=== PATIENT | male | born 1940 | race Caucasian/White ===

== ENCOUNTER 2016-10-11 10:59 | Outpatient (CLI) | payer MEDICARE ==
[~2016-10-11] VITALS: Ht 177.8 cm; Wt 104.5 kg
--- NOTE | ~2016-10-11 | HEMODYNAMI ---
PATIENT:ANANDA AMEZCUA MEDICAL RECORD: [id number] : 40 LOCATION:D.CAT ADMISSION DATE: 10/11/16 Generatedon:10/11/201614:43 Patient name: ANANDA AMEZCUA Patient #: [id number] SSN: : 1940 Date of study: 10/11/2016 Page: Of Hemodynamic Procedure Report Patient Data Patient Demographics Procedure consent was obtained First Name: ANANDA Gender: Male Last Name: SEVEN : 1940 [facility] Initial: JERRY Age: 76 year(s) Patient #: [id number] Race: Additional ID: [id number] Contact details Address: [facility] [employer] State: [place] City: [place] Zip code: [address] Past Medical History Allergies: No known allergies Admission Admission Data Admission Date: 10/11/2016 Admission Time: 10:59 Lab Results Lab Result Date: 10/11/2016 Lab Result Time: 0:00 Biochemistry Name Units Result Min Max Creatinine mg/dl 1 --(--*-)-- 0.6 1.3 CBC Name Units Result Min Max Hemoglobin g/dl 14.4 --(*---)-- 13.5 17.5 Procedure Procedure Types Cath Procedure Diagnostic Procedure LHC LHC w/Coronaries w/Grafts PCI Procedure Coronary Stent Initial Miscellaneous Procedures Moderate Sedation up to 45 minutes Procedure Description Procedure Date Procedure Date: 10/11/2016 Procedure Start Time: 14:07 Procedure End Time: 14:43 Procedure Staff Name Function Freddie Irby MD Performing Physician Karon Butterfield RT Scrub Rocio Vázquez RN Nurse Veronica Bernard RT Monitor Procedure Data Cath Procedure Fluoroscopy Diagnostic fluoroscopy Total fluoroscopy Time: 6.7 time: 6.7 min min Diagnostic fluoroscopy Total fluoroscopy dose: dose: 1344 mGy 1344 mGy Contrast Material Contrast Material Type Amount (ml) Isovue 300 124 Entry Location Entry Primary Successful Side Size Upsize Upsize Entry Closure Succes sful Closure Location (Fr) 1 (Fr) 2 (Fr) Remarks Device Remarks Femoral Right 5 Fr 6 Fr Exoseal artery Short Estimated blood loss: 10 ml Diagnostic catheters Device Type Used For End Catheter Placement Cordis 5Fr JL 4.0 Left Coronary Catheter (MP) Angiography Diagnostic Infinity 5Fr Internal mammary IM catheter arteriography Diagnostic Infinity 5Fr Right Coronary AR 2 MOD catheter Angiography Diagnostic Infinity 5Fr SVG Angiography AR 2 MOD catheter Diagnostic Infinity 5Fr SVG Angiography AR 2 MOD catheter Diagnostic Infinity 5Fr SVG Angiography AR 2 MOD catheter Cordis 5Fr Pigtail Catheter (MP) Procedure Complications No complications Procedure Medications Medication Administration Route Dosage Oxygen NC 2 l/min Lidocaine 2% added to field 20 Heparin Flush Bag added to field 2 bags (1000units/500ml NS) 0.9% NaCl I.V. 100 ml/hr Versed I.V. 1 mg Fentanyl I.V. 50 mcg Versed I.V. 1 mg Fentanyl I.V. 50 mcg Versed I.V. 1 mg Fentanyl I.V. 50 mcg Versed I.V. 1 mg Fentanyl I.V. 50 mcg Heparin Bolus I.V. 39483 units Plavix P.O. 600 mg Hemodynamics Rest HGB: 14.4 (g/dl) Heart Rate: 76 (bpm) Pressure Samples Time Site Value (mmHg) Purpose Heart Use Rate(bpm) 14:23 LV 133/11,21 EDP 75 14:24 AO 124/62(87) Pullback 73 14:24 LV 133/14,24 Pullback 73 Gradients Valve Time Site 1 Site 2 Mean SEP/DFP Peak To Heart Use (mmHg) (sec/min) Peak Rate (mmHg) (bpm) Aortic 14:24 LV AO 13 18 9 73 133/14,24 124/62(87) Calculations Valve P-P Mean Valve Index Valve Source Name Gradient Area Flow (cm2) Aortic 9 13 9 13 Snapshots Pre Cath Intra NCS Post Cath Vital Signs Time Heart Resp SPO2 NIBP (mmHg) Rhythm Pain Sedation Rate (ipm) (%) Status Level (bpm) 13:55:41 75 17 95 167/82(129) NSR 0 (11) 10(A) , No pain 14:00:13 77 16 97 162/78(121) NSR 0 (11) 10(A) , No pain 14:04:35 71 20 94 152/74(119) NSR 0 (11) 10(A) , No pain 14:08:58 70 21 93 141/67(109) NSR 0 (11) 10(A) , No pain 14:13:16 70 15 94 126/62(97) NSR 0 (11) 10(A) , No pain 14:17:40 70 17 94 124/59(95) NSR 0 (11) 10(A) , No pain 14:21:58 69 16 95 119/59(93) NSR 0 (11) 10(A) , No pain 14:26:18 70 16 94 133/62(87) NSR 0 (11) 10(A) , No pain 14:30:45 73 19 94 132/63(96) NSR 0 (11) 10(A) , No pain 14:35:00 76 15 94 121/59(101) NSR 0 (11) 10(A) , No pain 14:39:18 77 19 94 136/69(101) NSR 0 (11) 10(A) , No pain Medications Time Medication Route Dose Verified Delivered Reason Notes Effectiveness by by 13:58:07 Oxygen NC 2 Freddie Buffie used for l/min Galdino Vázquez RN procedure 13:58:15 Lidocaine 2% added 20ml Freddie Freddie for local to vial Galdino Irby MD anesthetic field 13:58:21 Heparin Flush added 2 bags Freddie Freddie used for Bag to Galdino Irby MD procedure (1000units/500ml field NS) 13:58:30 0.9% NaCl I.V. 100 Freddie Buffie Per physician ml/hr Galdino Vázquez RN 14:02:34 Versed I.V. 1 mg Freddie Buffie for sedation Galdino Vázquez RN 14:02:40 Fentanyl I.V. 50 mcg Freddie Buffie for sedation Galdino Vázquez RN 14:06:43 Versed I.V. 1 mg Freddie Buffie for sedation Galdino Vázquez RN 14:06:46 Fentanyl I.V. 50 mcg Freddie Buffie for sedation Galdino Vázquez RN 14:12:05 Versed I.V. 1 mg Freddie Buffie for sedation Galdino Vázquez RN 14:12:09 Fentanyl I.V. 50 mcg Freddie Buffie for sedation Irby MD Vázquez RN 14:19:28 Versed I.V. 1 mg Freddie Buffie for sedation Galdino Vázquez RN 14:19:32 Fentanyl I.V. 50 mcg Freddie Buffie for sedation Galdino Vázquez RN 14:29:17 Heparin Bolus I.V. 10,000 Freddie Buffie for verif ied units Galdino Vázquez RN anticoagulation with dr irby 14:41:51 Plavix P.O. 600 mg Freddie Juliannaie for Galdino Vázquez RN antiplatelet therapy Procedure Log Time Note 13:37:06 Veronica Counts RT(R) sent for patient. Start room use. 13:37:07 Time tracking: Regular hours 13:37:10 Plan of Care:Hemodynamics will remain stable., Cardiac rhythm will remain stable., Comfort level will be maintained., Respiratory function will remain adequate., Patient/ family verbilizes understanding of procedure., Procedure tolerated without complication., Recovers from procedure without complications.. 13:45:38 Patient received from Pre/Post Procedure Room to [facility] 2 Alert and oriented. Tansferred to table in Supine position. 13:45:49 Warm blankets applied, and rosa hugger turned on for patient comfort. 13:45:50 Correct patient and procedure confirmed by team. 13:45:55 Signed procedure consent form obtained from patient. 13:46:14 H&P Date Dictated: 09/27/2016 Within 30 days and on chart., H&P Addendum completed by physician on day of procedure. (MUST COMPLETE FOR ALL OUTPATIENTS). 13:54:20 ECG and BP/O2 sat monitors applied to patient. 13:54:21 Vital chart was started 13:54:25 Rhythm: sinus rhythm 13:54:29 Full Disclosure recording started 13:54:30 Pre-procedure instructions explained to patient. 13:54:30 Pre-op teaching completed and patient verbalized understanding. 13:54:32 Family in waiting room. 13:54:34 Patient NPO since Midnight. 13:54:40 Patient allergic to No known allergies 13:54:42 Is the patient allergic to Iodine/contrast media? No. 13:54:45 Is patient on blood thinner?No 13:54:52 ACC The patient was administered the following blood thiners within the last 24 hours: ACCAspirin 13:54:53 Patient diabetic? No. 13:54:57 Previous problem with sedation/anesthesia? No ? 13:54:57 Snore? Yes 13:55:00 Sleep apnea? No 13:55:01 Deviated septum? No 13:55:02 Opens mouth fully? Yes 13:55:03 Sticks out tongue? Yes 13:55:12 Airway obstruction? Yes ASTHMA 13:55:15 Dentures? No ? 13:55:20 Pre procedure: right dorsailis pedis pulse 2+ Normal; easily identifiable; not easily obliterated 13:55:22 Patient pain scale 0/10 ?. 13:55:28 IV patent on arrival in left hand with 0.9% NaCl at [facility]. 13:55:44 Lab Result : Creatinine 1 mg/dl 13:55:44 Lab Result : Hemoglobin 14.4 g/dl 13:55:47 Lab results completed and on chart. 13:55:50 Right groin area was prepped with chlora-prep and draped in sterile fashion 13:55:50 Alarms reviewed by R. N. 13:55:51 Sharps counted by scrub and verified by R.N. 13:55:54 Use device set Femoral Dx 13:55:55 Acist Syringe opened to sterile field. 13:55:55 Bag Decanter opened to sterile field. 13:55:56 Medline Cath Pack opened to sterile field. 13:55:56 Terumo 5Fr Kingsley Sheath opened to sterile field. 13:55:57 St Kailash 260cm J .035 wire opened to sterile field. 13:55:58 Acist Hand Control opened to sterile field. 13:55:59 Acist Manifold opened to sterile field. 13:55:59 Diagnostic Infinity 5Fr Multipack catheter opened to sterile field. 13:56:00 Tegaderm 4 x 4 opened to sterile field. 13:58:07 Oxygen 2 l/min NC was administered by Rocio Vázquez RN; used for procedure; 13:58:15 Lidocaine 2% 20ml vial added to field was administered by Freddie Irby MD; for local anesthetic; 13:58:21 Heparin Flush Bag (1000units/500ml NS) 2 bags added to field was administered by Freddie Irby MD; used for procedure; 13:58:30 0.9% NaCl 100 ml/hr I.V. was administered by Rocio Vázquez RN; Per physician; 13:59:26 Baseline sample Acquired. 14:00:39 Final Timeout: patient, procedure, and site verified with staff and physician. All members of the team are in agreement. 14:00:41 Right groin site verified by team. 14:00:43 Physical assessment completed. ASA score P 2 - A patient with mild systemic disease as per Freddie Irby MD. 14:00:45 Sedation plan: IV Moderate Sedation Versed, Fentanyl 14:02:34 Versed 1 mg I.V. was administered by Rocio Vázquez RN; for sedation; 14:02:40 Fentanyl 50 mcg I.V. was administered by Rocio Vázquez RN; for sedation; 14:04:55 Zero performed for pressure channel P1 14:06:08 Zero performed for pressure channel P1 14:06:43 Versed 1 mg I.V. was administered by Rocio Vázquez RN; for sedation; 14:06:46 Fentanyl 50 mcg I.V. was administered by Rocio Vázquez RN; for sedation; 14:07:16 Procedure started. 14:07:18 Local anesthetic to right femoral artery with Lidocaine 2% by Freddie Irby MD.INITIAL ACCESS ONLY 14:09:37 A 5 Fr sheath was inserted into the Right Femoral artery 14:10:20 A Cordis 5Fr JL 4.0 Catheter () was advanced over the wire and used for Left Coronary Angiography. 14:12:05 Versed 1 mg I.V. was administered by Rocio Vázquez RN; for sedation; 14:12:09 Fentanyl 50 mcg I.V. was administered by Rocio Vázquez RN; for sedation; 14:13:53 Catheter removed. 14:16:53 A Diagnostic Infinity 5Fr IM catheter was advanced over the wire and used for Internal mammary arteriography.TO ?? 14:17:13 Catheter removed. 14:18:13 A Diagnostic Infinity 5Fr AR 2 MOD catheter was advanced over the wire and used for Right Coronary Angiography. 14:19:28 Versed 1 mg I.V. was administered by Rocio Vázquez RN; for sedation; 14:19:32 Fentanyl 50 mcg I.V. was administered by Rocio Vázquez RN; for sedation; 14:19:47 A Diagnostic Infinity 5Fr AR 2 MOD catheter was advanced over the wire and used for SVG Angiography.TO ? Occluded. 14:20:02 A Diagnostic Infinity 5Fr AR 2 MOD catheter was advanced over the wire and used for SVG Angiography.TO ? Occluded. 14:20:24 A Diagnostic Infinity 5Fr AR 2 MOD catheter was advanced over the wire and used for SVG Angiography.TO RCA Occluded. 14:21:26 Catheter removed. 14:23:30 A Cordis 5Fr Pigtail Catheter (MP) was advanced over the wire and used for . 14:23:46 LV gram done using GUTIERREZ 14:23:49 LV hemodynamics recorded. 14::52 Injector settings: Ml/sec: 10, Volume: 20, 14:24:17 EF : 50 % 14:24:48 Catheter removed. 14:25:37 Cordis 6FR XBLAD 3.5 guide catheter opened to sterile field. 14:25:37 High Pressure Extension Tubing (Galdino) opened to sterile field. 14:25:38 99.co BasixCompak Inflation Kit opened to sterile field. 14:25:42 Terumo 6Fr Kingsley Sheath opened to sterile field. 14:25:49 Kiwi CrateW Almen[place] 2 J-tip 300cm 0.014 guide wir opened to sterile field. 14:26:00 Sheath upsized to a 6 Fr Short. 14:27:33 6 Fr XBLAD 3.5 guide catheter was inserted over the wire 14:29:17 Heparin Bolus 10,000 units I.V. was administered by Rocio Vázquez RN; for anticoagulation; verified with dr irby 14:29:41 BMW wire advanced. 14:34:34 Inflation Number: 1 A Gunter OTW 3.0 x 26 stent was prepped and advanced across the Ramus. The stent was deployed at 13 ISABEL for 0:28 (min:sec). 14:35:10 Stent catheter was removed intact over wire. 14:35:11 Wire removed. 14:35:11 Guide catheter removed. 14:35:29 Cordis 6Fr Exoseal opened to sterile field. 14:35:44 Sheath removed intact; hemostasis achieved with Exoseal to the Right Femoral artery. 14:35:48 Procedure ended.(Physican Out) 14:36:51 Fluoroscopy time 06.70 minutes. 14:36:55 Fluoroscopy dose: 1344 mGy 14:36:55 Flurop Dose total: 1344 14:37:04 Contrast amount:Isovue 300 124ml. 14:37:05 Sharps counted by scrub and verified by R.N. 14:37:06 Insertion/operative site no bleeding no hematoma. 14:37:11 Post-op/insertion site Right Femoral artery dressed using a 4 x 4 and Tegaderm. 14:37:14 Post right femoral artery:stable, clean and dry 14:37:15 Post Procedure Pulses reassessed and unchanged 14:37:22 Post-procedure physical assessment completed. ASA score P 2 - A patient with mild systemic disease as per Freddie Irby MD. 14:37:25 Post procedure rhythm: unchanged. 14:37:27 Estimated blood loss: 10 ml 14:37:29 Post procedure instruction explained to patient.Patient verbalizes understanding. 14:37:29 Patient needs reinforcement of post procedure teaching. 14:37:44 Procedure type changed to Cath procedure, Diagnostic procedure, LHC, LHC w/Coronaries w/Grafts, PCI procedure, Coronary Stent Initial, Miscellaneous Procedures, Moderate Sedation up to 45 minutes 14:37:49 Procedure Complication : No complications 14:37:53 See physician's report for complete and final results. 14:39:03 Procedure and supply charges have been captured, reviewed, submitted and are correct. 14:41:51 Plavix 600 mg P.O. was administered by Rocio Vázquez RN; for antiplatelet therapy; 14:43:04 Vital chart was stopped 14:43:08 Report given to Pre/Post Procedure Room. 14:43:11 Patient transfered to Pre/Post Procedure Room with Stretcher. 14:43:22 Procedure ended. 14:43:22 Full Disclosure recording stopped 14:43:26 End room use (Document Last) Intervention Summary Intervention Notes Time ActionType Lesion and Equipment Action# Pressure Duration Attributes Used 14:34:34 Place stent Ramus Cristóbal OTW 1 13 00:28 3.0 x 26 stent Device Usage Item Name Manufacture Quantity Catalog Hospital Part Current Minima l Lot# / Number Charge Number Stock Stock Serial# Code [facility] 1 [id number] 275473 959091 279866 20 Syringe [employer] Inc Bag Microtek 1 2002S 628498 06863 585275 5 DeceTelemetry [employer] Inc. Medline Cardinal 1 [id number] 632374 75049 176240 5 Cath Pack Synthetic Genomics Terumo 5Fr Terumo 1 [id number] 634550 184852 054349 [address] St Kailash 1 144219 892368 271137 058060 30 260cm J .035 wire Acist Hand Acist 1 70258 418618 905816 130432 5 Control Medical Systems Inc Acist Acist 1 81429 746525 060790 046785 5 Manifold Medical Systems Inc Diagnostic Cardinal 1 [id number] 075044 63972 324268 30 [facility] 5Fr Multipack catheter Tegaderm 4 3M 1 1626W 703672 131985 196332 5 x 4 Cordis 5Fr Cardinal 1 288585 5 JL 4.0 Health Catheter (MP) Diagnostic Cardinal 1 [id number] 624761 103230 282747 5 [facility] 5Fr IM catheter Diagnostic Cardinal 1 [id number] 552004 198773 327844 20 [facility] 5Fr AR 2 MOD catheter Cordis 5Fr Cardinal 1 224116 5 Pigtail Health Catheter (MP) Cordis 6FR Cardinal 1 [id number] 625726 203837 872117 10 XBLAD 3.5 Health guide catheter High Merit 1 [id number] 953157 73970 247999 10 Pressure Medical Extension Tubing (Irby) Merit Merit 1 [id number] 721331 191586 210083 15 BasixCompak Medical Inflation Kit Terumo 6Fr Terumo 1 [id number] 241041 807873 304280 40 Kingsley Sheath Acosta BMW Acosta 1 [id number] 575102 221841 661652 5 [place] 2 Vascular J-tip 300cm 0.014 guide wir Gunter OTW Medtronic 1 [id number] 966073 1281666 733958 5 [id number] 3.0 x 26 stent Cordis 6Fr Cardinal 1 EX600 327355 062003 890188 10 [facility] Synthetic Genomics Signature Audit [place] Stage Time Signature Unsigned Intra-Procedure 10/11/2016 Veronica 2:43:39 PM Counts RT(R) Signatures Monitor : Veronica Signature : Counts RT Date : Time : [id number] [place] [address]
[~2016-10-11 10:59] MED LIST: AMBIEN10 MG PO; ASPIRIN EC81 MG PO; AXIRON30 MG/1.5; CARDURA2 MG PO; CENTRUM SILVER1 TA2 PO; CORDARONE200 MG PO; DHEA25 M1 PO; EXFORGE HCT 101 EAC2 PO; LIPITOR80 MG PO; PERCOCET 5/3251 TA1 PO; POTASSIUM GLUCONATE OR; PRILOSEC20 MG PO; PROZAC20 MG PO; TENORMIN50 MG
[2016-10-11] MEDS ORDERED: DIOVAN320 MG PO (11:44)
[2016-10-11] MEDS ORDERED: OXYBUTYNIN CHLOR5 MG PO (11:47)
[2016-10-11] MEDS ORDERED: ZYLOPRIM300 MG PO (11:48)
[2016-10-11] MEDS ORDERED: VALTREX500 MG PO (11:49)
[2016-10-11] MEDS ORDERED: POTASSIUM99 M1 PO (11:50)
[2016-10-11] MEDS ORDERED: CO Q-1030 MG PO (11:50)
[2016-10-11 11:53] VITALS: BP 140/64; Ht 177.8 cm; Wt 104.5 kg
[2016-10-11 12:11] LABS: BASOPHILS 0.8 % (0-2); EOSINOPHILS 7.7 % (0-7); HEMATOCRIT 42.9 % (42.0-54.0); HEMOGLOBIN 14.4 g/dL (13.5-17.5); IMMATURE GRANULOCYTES 0.4 % (0-5); LYMPHOCYTES 31.3 % (15-50); MCH 28.1 pg (26.0-34.0); MCHC 33.6 g/dL (31.0-37.0); MCV 83.8 fL (80.0-100.0); MEAN PLATELET VOLUME 10.3 fL (7.4-10.4); MONOCYTES 11.7 % (2-11); NEUTROPHILS 48.1 % (40-80); RBC 5.12 10x6/uL (4.20-6.10); RDW 15.9 % (11.5-14.5); WBC 12.3 10x3/uL (4.8-10.8)
[2016-10-11 12:12] LABS: PLATELET COUNT 410 10x3/uL (130-400)
[2016-10-11 12:35] LABS: CALC OSMOLALITY 276 mosm/kg (275-300); CALCIUM 9.5 mg/dL (8.5-10.1); CHLORIDE - SERUM 101 mmol/L (98-107); GLUCOSE 117 mg/dL (74-106); POTASSIUM - SERUM 4.5 mmol/L (3.5-5.1); SODIUM 137 mmol/L (136-145); UREA NITROGEN 18 mg/dL (7-18); eGFR NON AFRICAN AMERICAN 77 mL/min (90-120)
[2016-10-11] MEDS ORDERED: PLAVIX75 MG PO (15:03)
--- NOTE | 2016-10-11 15:15 | NUR ---
RIGHT GROIN CDI, NO HEMATOMA OR BLEEDING NOTED, SITE SOFT TO TOUCH. DENIES NEEDS OR PAIN
--- NOTE | 2016-10-11 15:45 | NUR ---
NO CHANGES IN GROIN/R- CDI
--- NOTE | 2016-10-11 16:06 | NUR ---
C/O BACK PAIN DUE TO 4 BACK SURGERIES- NEW ORDER FROM DR DILLON. NORCO X1 GIVEN PO. CALL LIGHT WITH IN REACH AND AT SIDE
--- NOTE | 2016-10-11 16:45 | NUR ---
STATES BACK IS MUCH BETTER AFTER MEDICINE, AT SIDE
--- NOTE | 2016-10-11 19:20 | NUR ---
IV D'C WITH CATH TIP INTACT, WRITTEN AND VERBAL INSTRUCTIONS GIVEN TO PT AND , DENIES CHEST PAIN OR ANY PAIN, D'C HOME WITH
== END 2016-10-11 19:30 | disposition home or self-care (01) ==
LOC: D.CATH 10:59
PROVIDERS: Internal Medicine Cardiovascular Disease
DX: I25.119 Atherosclerotic heart disease of native coronary artery with unspecified angina pectoris (principal); I25.719 Atherosclerosis of autologous vein coronary artery bypass graft(s) with unspecified angina pectoris; Z01.812 Encounter for preprocedural laboratory examination